=== PATIENT | female | born 1950 | race Caucasian/White ===

== ENCOUNTER 2017-03-10 07:22 | Day surgery (SDC) | payer MEDICARE ==
[2017-03-10] VITALS (7 sets, daily range): BP systolic 161–190; BP diastolic 80–93; PULSE 61–76; RESP 14–20; Ht 165.1 cm; Wt 59.0 kg
[~2017-03-10] VITALS: Ht 165.1 cm; Wt 59.0 kg
[2017-03-10] MEDS ORDERED: POLYMYXIN/BACITRACIN 1L IRRIG IRR ONE (08:00)
[2017-03-10] MEDS ORDERED: CEFAZOLIN 1 GM/50 ML (PMX) 50 ML IVPB ONE ×2 (08:00→10:36)
[2017-03-10] MEDS ORDERED: CLON-379 PO (08:10)
[2017-03-10] MEDS ORDERED: METO-429 PO (08:10)
[2017-03-10] MEDS ORDERED: FERR325C PO (08:11)
[2017-03-10] MEDS ORDERED: SOD CHLORIDE 0.9% 1,000 ML IV SCH (08:16)
[2017-03-10] MEDS ORDERED: METOPROLOL 50 MG TAB PO ONE (08:30)
[2017-03-10] MEDS ORDERED: MIDAZOLAM 1 MG/ML 2 ML INJ ONE (10:36)
[2017-03-10] MEDS ORDERED: LIDOCAINE 2%/EPI 30 ML INJ ONE (10:36)
[2017-03-10] MEDS ORDERED: FENTAnyl 50 MCG/ML VIAL ONE (10:36)
[2017-03-10] MEDS ORDERED: HEPARIN 1000 UNITS/ML 10 ML INJ ONE (10:36)
[2017-03-10] MEDS ORDERED: SOD CHLORIDE 0.9% 500 ML ONE ×2 (10:37→13:20)
--- NOTE | 2017-03-10 11:56 | RADRPT ---
PROCEDURE: FLUOROSCOPIC AND ULTRASONOGRAPHIC-GUIDED PLACEMENT OF LEFT CHEST PORT. CLINICAL INDICATION: History of breast cancer. Venous access for chemotherapy. TECHNIQUE: INTRAPROCEDURE MEDICATIONS: PB antibiotic solution 40 cc applied topically. 1 gram Ancef intravenous ly, intra-op. IV Versed and Fentanyl per protocol. TECHNIQUE: Informed consent was obtained. The procedure, risks, benefits, complications and alternat ang were explained to the patient. Risks including bleeding, infection, and pneumothorax were expl ained. The patient understood and was willing to proceed. A procedural pause was performed. The patient's name, date of , and procedure to be performed w ere verified. The central line was inserted with all elements of maximal sterile barrier technique. All of the fol lowing were used: head covering, facial mask, sterile gown, sterile gloves, a large sterile sheet, h and hygiene, and 2% chlorhexidine for cutaneous antisepsis. The left neck and anterior/superior chest wall were prepped and draped in usual sterile fashion. Limited sonography of the left neck was then performed. Noted is a patent left internal jugular vein . Following the local injection of 1% lidocaine, the left internal jugular vein was punctured under so nographic guidance with a 20-gauge needle through which a 0.018 inch floppy tip guidewire was advanc ed into the superior vena cava with fluoroscopic guidance. The tract was dilated to 5 [place] and t he wire was then replaced with a 0.035 in Glidewire. Serial dilatation was then performed and a 7 F rench peel away sheath was introduced. A site just inferior to the clavicle in the superior anterior left chest wall was localized. One per cent lidocaine was used as local anesthesia. A transverse 3 cm incision was made utilizing a 15 blad e scalpel. Utilizing blunt dissection a subcutaneous pocket was created inferior to the incision. Th e cavity was flushed with approximately 40 cc of PB antibiotic solution. The catheter was tunneled underneath the skin from the newly created pocket to the puncture site in the neck. The central line catheter was pulled through the tract. The catheter was then advanced thr ough the sheath until the tip was positioned in the right atrium. The peel-away sheath was removed. The catheter was flushed and clamped. The catheter was then connected to the 6.6 [place] Ang[employer] power port. The port was then placed into the pocket. Prior to closing the instrument and sponge count was verified and was correct. The subcutaneous tissue was closed with 3-0 Vicryl interrupted suture. The skin at the site of the pock et and in the neck was closed with 4-0 Vicryl suture in a running subcuticular technique. The port w as flushed with 2000 units of heparin in 2 cc utilizing a Kapoor needle. The needle was removed. A dr essing was applied. The patient tolerated procedure well. COMPARISON: None. FINDINGS: Ultrasound images were recorded and stored in the patient's medical record. Final radiographic images demonstrate the tip of the catheter in the upper right atrium. A total of 0.1 minutes of fluoroscopy time was used. The ultrasound images demonstrate the needle entering th e jugular vein. 6 images of the chest were obtained with image intensifier. IMPRESSION: 1. Successful ultrasonographic and fluoroscopic guided placement of left chest port. RPTAT: QQ .Daniel Woodson MD, MD Date Time Electronically viewed and signed by .Daniel Woodson MD, on 03/10/2017 11:56 .R/
--- NOTE | 2017-03-10 12:06 | RADRPT ---
PROCEDURE: Ultrasound guidance for placement of needle in left internal jugular vein. CLINICAL INDICATION: Venous access. TECHNIQUE: Prior to the procedure, informed consent was obtained. Risks including bleeding, infection, and pneu mothorax were explained to the patient. The patient understood and was willing to proceed. A procedu ral pause was performed. The patient's name, date of , and procedure to be performed were verif ied. The central line was inserted with all elements of maximal sterile barrier technique. All of th e following were used: head covering, facial mask, sterile gown, sterile gloves, a large sterile she et, hand hygiene, and 2% chlorhexidine for cutaneous antisepsis. The left neck and anterior/superi or chest wall was prepped and draped in usual sterile fashion. Limited sonography of the left neck was then performed. Noted is a patent left internal jugular vein . Ultrasound images were recorded and stored in the patient's medical record. Following the local injection of Xylocaine, the left internal jugular vein was punctured under sonog raphic guidance with a 20-gauge needle through which a 0.018 inch floppy tip guidewire was advanced into the superior vena cava. The patient tolerated the procedure well. The remainder of the proced ure was performed and dictated under separate cover. COMPARISON: None. FINDINGS: The ultrasound images demonstrate a patent left internal jugular vein. The subsequent images demons trate the needle entering the left internal jugular vein. IMPRESSION: 1. Ultrasound guidance for a needle placement in left internal jugular vein. RPTAT: QQ .Daniel Woodson MD, Date Time Electronically viewed and signed by .Daniel Woodson MD, on 03/10/2017 12:06 .R/
[2017-03-10] MEDS ORDERED: HYDROCODONE/APAP (5/325) TAB PO PRN (12:30)
[2017-03-10] MEDS ORDERED: ONDANSETRON 4 MG INJ ONE (12:59)
[2017-03-10] MEDS ORDERED: ONDANSETRON 4 MG INJ IV STA (13:00)
== END 2017-03-10 14:40 | disposition home or self-care (01) ==
LOC: SDS 07:22
PROVIDERS: ATTEND Internal Medicine Hematology & Oncology
DX: C50.911 Malignant neoplasm of unspecified site of right female breast (principal)
CPT/HCPCS: 36561; 76942; C1788; J0690; J1644; J2250; J2405; J3010; J7040

== ENCOUNTER 2019-02-10 01:36 | Inpatient (IN) | payer MEDICARE, OTHER ==
[~2019-02-10] VITALS: Ht 165.1 cm; Wt 59.0 kg
[~2019-02-10 01:36] MED LIST: ANAS1TAB PO; METO-429 PO; RIBO600T PO
[2019-02-10] MEDS ORDERED: ACETAMINOPHEN 325 MG TAB PO PRN ×2 (06:30→14:00)
[2019-02-10] MEDS ORDERED: ONDANSETRON 4 MG INJ IV PRN ×2 (06:30→14:00)
[2019-02-10] MEDS ORDERED: LEVOFLOXACIN 750MG/D5W (PMX) 150 ML IVPB ONE (06:30)
--- NOTE | 2019-02-10 06:42 | ERD ---
ER Documentation Chief Complaint Chief Complaint bib ra from home for fall, left knee pain s/p fall yesterday, history ofchf HPI This is a 68-year-old female with a past medical history of breast cancer status post mastectomy and chemoradiation, complicated by significant degenerative skin changes and scarring, chronic progressive worsening volume overload and anasarca, frequent falls, who is now presenting to the emergency department with several days of acceleration of her decompensation. The patient has been falling even more frequently, including yesterday. When she fell yesterday, she fell to her knees, and she has been complaining of left knee pain and difficulty with ambulation since then. The patient did not hit her head. She did not lose consciousness. The patient reportedly has been seen by her physicians in an outpatient setting recently and her Lasix dose was increased. However, the patient swelling has not improved. The patient does endorse increased weakness and fatigue as well. The patient endorses feeling generally unwell. She has chronic shortness of breath. She denies chest pain. She denies abdominal pain. She has not had changes to bowel movements or urination. ROS All systems reviewed and are negative except as per history of present illness. Medications Home Meds Reported Medications Ribociclib Succinate (Kisqali) 600 Mg Tablet, 600 MG PO BID, TAB 02/21/18 Anastrozole* (Arimidex*) 1 Mg Tablet, 1 MG PO DAILY, #30 TAB 02/21/18 Metoprolol Tartrate* (Lopressor*) 50 Mg Tab, 50 MG PO BID, #60 TAB 03/10/17 Allergies Allergies: Uncoded Allergies: CHEMOTHERAPY MED (Allergy, Unknown, BREATHING DIFFICULTY, 03/10/17) DONT KNOW THE EXACT NAME OF MEDICINE PMhx/Soc History of Surgery: Yes (BILATERAL MASTECTOMY) Anesthesia Reaction: No Hx Neurological Disorder: No Hx Respiratory Disorders: No Hx Cardiac Disorders: Yes (Hypertension, cardiac disease) Hx Psychiatric Problems: No Hx Miscellaneous Medical Probl: Yes (Breast cancer) Hx Alcohol Use: No Hx Substance Use: No Hx Tobacco Use: No Smoking Status: Never smoker FmHx Family History: No diabetes Physical Exam Vitals Vital Signs Date Temp Pulse Resp B/P (MAP) Pulse Ox O2 O2 Flow FiO2 Time Delivery Rate 02/10/19 97.4 130 18 132/59 97 Nasal 3.0 06:00 (83) Cannula 02/10/19 98.8 81 16 126/65 100 Room Air 03:40 (85) 02/10/19 Nasal 3 02:50 Cannula 02/10/19 98.8 110 16 116/66 100 01:48 (83) Physical Exam Const: No apparent distress, well-developed, well-nourished Head: Normocephalic, Atraumatic Eyes: Normal Conjunctiva. Extraocular movements intact. Pupils equal, round and reactive to light ENT: Normal External Ears, Nose and Mouth. Neck: Full range of motion. No meningismus. Resp: Coarse breath sounds bilaterally. Cardio: Regular rhythm. Tachycardia. No murmurs, rubs or gallops Abd: Soft, non tender, non distended. Normal bowel sounds Skin: No petechiae or rashes Back: No midline tenderness. No CVA tenderness Ext: No cyanosis. Diffuse 2+ pitting extremity edema, anasarca. Neur: Awake and alert. Cranial nerves intact. No facial droop. Moves all extremities spontaneously. Result Diagram: 02/10/1940902/10/19409 Results 24 hrs Laboratory Tests Test 02/10/19 04:10 White Blood Count 6.8 10^3/ul Red Blood Count 3.87 10^6/ul Hemoglobin 10.4 g/dl Hematocrit 35.8 % Mean Corpuscular Volume 92.5 fl Mean Corpuscular Hemoglobin 26.9 pg Mean Corpuscular Hemoglobin Concent 29.1 g/dl Red Cell Distribution Width 16.5 % Platelet Count 262 10^3/UL Mean Platelet Volume 9.7 fl Immature Granulocytes % 0.400 % Neutrophils % % Segmented Neutrophils % (Manual) 26 % Band Neutrophils % (Manual) 49 % Lymphocytes % % Lymphocytes % (Manual) 5 % Monocytes % % Eosinophils % % Basophils % % Basophils % (Manual) 1 % Metamyelocytes % (manual) 15 % Myelocytes % (Manual) 4 % Nucleated Red Blood Cells % 0.0 /100WBC Immature Granulocytes # 0.030 10^3/ul Neutrophils # 10^3/ul Neutrophils # (Manual) 2.0 10^3/ul Band Neutrophils # 3.3 10^3/ul Lymphocytes (Manual) 0.3 10^3/ul Lymphocytes # 10^3/ul Monocytes # 10^3/ul Eosinophils # 10^3/ul Basophils # 10^3/ul Basophils # (Manual) 0.0 10^3/ul Metamyelocytes # 1.0 10^3/ul Myelocytes # 0.2 10^3/ul Nucleated Red Blood Cells # 10^3/ul Platelet Estimate NORMAL Giant Platelets 11 % Platelet Morphology Comment @See below Polychromasia 1+ Poikilocytosis 1+ Anisocytosis 1+ Macrocytosis 1+ Prothrombin Time 12.9 Sec Prothrombin Time Ratio 1.0 INR International Normalized Ratio 0.96 Sodium Level 138 mmol/L Potassium Level 6.0 mmol/L Chloride Level 100 mmol/L Carbon Dioxide Level 30 mmol/L Anion Gap 8 Blood Urea Nitrogen 42 mg/dl Creatinine 1.33 mg/dl Est Glomerular Filtrat Rate mL/min 40 mL/min Glucose Level 88 mg/dl Calcium Level 8.0 mg/dl Troponin I 0.053 ng/ml B-Type Natriuretic Peptide 3840 PG/ML Current Medications Medications Dose Sig/An Start Time Status Last (Trade) Ordered Route PRN Stop Time Admin Dose Reason Admin 150 ml @ ONCE ONCE 02/10/19 UNV Levofloxacin/ 100 mls/hr IVPB 06:30 02/10/19 Dextrose 07:59 Ondansetron 4 mg ER BRIDGE 02/10/19 HCl (Zofran PRN IV 06:30 02/11/19 Inj) NAUSEA/VOMITI 06:29 NG 650 mg ER BRIDGE 02/10/19 Acetaminophen PRN PO 06:30 02/11/19 (Tylenol .MILD PAIN 06:29 Tab) 1-3 OR TEMP Procedures/MDM MDM The patient's presentation warrants further investigation. Previous medical records, if available, were reviewed. LABS The patient's laboratory testing was obtained and reviewed. No emergent treatment was required unless described below. CBC: Significant leukocytosis of unclear etiology. Normocytic anemia, not emergent. Normal platelet count. Chemistry: Hyperkalemia, does not require emergent treatment. Elevated BUN and creatinine of unclear chronicity. No E/o severe acidosis or alkalosis or diabetic ketoacidosis PT/INR: No E/o significant coagulopathy Troponin: No E/o acute ischemia BNP: Elevated EKG EKG read by me: Rate/Rhythm: Sinus tachycardia at 128 bpm Intervals: Normal VA interval and QTc. Wide QRS in the setting of a right bundle branch block. [place]: Left shifted Impression: Nonspecific repolarization changes without evidence of acute ischemia. Sinus tachycardia. IMAGING Imaging and Radiology interpretation reviewed. CXR 1V Interpreted by me Soft Tissue: No acute abnormalities Bones: No acute abnormalities Mediastinum/Cardiac Silhouette: Cardiomegaly. No widened mediastinum. Lungs: Significant right-sided pleural effusion. Cannot rule out an opacity or pneumonia. Pulmonary edema. No pneumothorax. X-ray left knee Interpreted by me No fracture dislocation TREATMENT/DISPOSITION The patient presents after a mechanical fall. She did fall to her knees and c omplained of left knee pain. An x-ray was completed that did not reveal any fracture dislocation on my view. On assessment of the patient, there is significant evidence of failure to thrive and progressive worsening disease. The patient's BNP is elevated, concerning for the possibility of heart failure. The patient does appear to have volume overload and anasarca, and she is failing outpatient therapy. I do feel that the patient requires more aggressive diuresis and would benefit from further management in the hospital. The patient was tachycardic in the emergency department. She was found to have a significant bandemia as well. She is afebrile, and many of her symptoms are chronic in nature. Given the patient's significant bandemia, I did opt to complete a sepsis work-up. The patient does appear to have a significant right- sided pleural effusion, and I cannot exclude pneumonia from the ER. I am concerned that this effusion could be malignant in nature. She may require pleu rocentesis in the hospital. The patient was given a dose of Levaquin in the emergency department. I opted not to pursue the sepsis bolus, given the patient's significant volume overload and anasarca. The patient's blood pressure remained stable throughout my assessment. SEPSIS NOTE SIRS Criteria: Bandemia, tachycardia Infectious source: Pneumonia End organ damage indicated by: None SEPSIS MANAGEMENT Time to recognize sepsis: 0545. Time to recognize severe sepsis: I do not suspect severe sepsis Time to recognize septic shock: I do not suspect septic shock 3 HOUR BUNDLE Blood cultures x 2 before abx: Yes 30 ml/kg NS bolus not completed secondary to significant volume overload and the patient Initial lactate pending Repeat lactate pending SEPTIC SHOCK ASSESSMENT: Lactic acid is pending NO hypotension (SBP < 90 or 40 mmHg drop, MAP < 65) CRITICAL CARE Critical care time 35 minutes Emergent fluid management while maintaining close respiratory support. Provision of immediate and broad-spectrum antibiotic therapy. Simultaneous assessment for possible sources in order to direct targeted therapy. Consideration for invasive and chemical support to prevent cardiopulmonary collapse. Critical care time is independent of procedures performed. ADMISSION The patient will be admitted to panel in accordance with the patient's insurance. The patient was accepted by Dr. Cruz at 6:15 AM on February 10, 2019. Disclaimer: Inadvertent spelling and grammatical errors are likely due to EHR/dictation software use and do not reflect on the overall quality of patient care. Note that the electronic time recorded on this note does not necessarily reflect the actual time of the patient encounter. Departure Diagnosis: Primary Impression: Sepsis Sepsis type: sepsis due to unspecified organism Qualified Codes: A41.9 - Sepsis, unspecified organism Additional Impressions: Pneumonia Pneumonia type: due to unspecified organism Laterality: right Lung location: lower lobe of lung Qualified Codes: J18.1 - Lobar pneumonia, unspecified organism Pleural effusion Tachycardia Bandemia Failure to thrive Failure to thrive age range: in adult Qualified Codes: R62.7 - Adult failure to thrive History of breast cancer CHF (congestive heart failure) Heart failure type: unspecified Heart failure chronicity: chronic Qualified Codes: I50.9 - Heart failure, unspecified Elevated brain natriuretic peptide (BNP) level Anasarca Volume overload Hypervolemia type: unspecified Qualified Codes: E87.70 - Fluid overload, unspecified Condition: Serious LILLIAN BURGER MD Feb 10, 2019 06:41
[2019-02-10] MEDS: NA POLYST SULFON 15 GM/60 ML BTL PO ONE ×2 (09:41→10:12)
[2019-02-10] MEDS ORDERED: CLON0.2T5 PO (11:26)
[2019-02-10] MEDS ORDERED: METO-429 PO (11:27)
[2019-02-10] MEDS ORDERED: POTA20TA15 PO (11:27)
[2019-02-10] MEDS ORDERED: PANT40TA3 PO (11:27)
[2019-02-10] MEDS ORDERED: FURO40TA4 PO (11:27)
[2019-02-10] MEDS ORDERED: ALBU18HF INHALATION (11:28)
[2019-02-10] MEDS ORDERED: PALB125C PO (11:29)
[2019-02-10 13:35] VITALS: Ht 165.1 cm; Wt 59.0 kg
[2019-02-10] MEDS ORDERED: SOD CHLORIDE 0.9% 1,000 ML IV SCH (13:42)
[2019-02-10] MEDS ORDERED: NACL 0.9% 3 ML SYG IV SCH (14:00)
[2019-02-10] MEDS ORDERED: HYDROCODONE/APAP (5/325) TAB PO PRN (14:00)
[2019-02-10] MEDS ORDERED: morphine 2 MG INJ IV PRN (14:00)
[2019-02-10 14:45] VITALS: BP 95/50; PULSE 120; RESP 22
--- NOTE | 2019-02-10 14:45 | HP ---
Date/Time of Note Date/Time of Note DATE: 02/10/19 TIME: 14:35 Assessment/Plan VTE Prophylaxis SCD applied (from Nsg): Yes Pharmacological prophylaxis: NA/contraindicated Pharm contraindication: renal impairment Lines/Catheters IV Catheter Type (from Nrsg): Saline Lock Assessment/Plan Hospital Course 1. Acute encephalopathy like secondary to severe dehydration on progressive metastatic breast cancer Patient may have a reversible component to her encephalopathy secondary to dehydration, trial of fluids Family aware that this may be simply the progression of her underlying terminal metastatic breast cancer Empiric Rocephin for possible UTI Follow-up on UA 2. Acute kidney injury secondary to dehydration IV fluids Nephrology consultation obtained 3. Metastatic breast cancer status post bilateral mastectomy and chemoradiation Patient's chemotherapy is reportedly on hold by outpatient oncologist likely secondary to decreased functional status Patient with poor prognosis, family has decided on DNR status 4. Hyperkalemia secondary to acute kidney injury IV fluids Nephrology consultation obtained 5. Normocytic anemia secondary to chronic disease Monitor 6. History of hypertension Hold home meds as blood pressure is currently low 7. Pulmonary edema secondary malignant effusion Chest x-ray shows pulmonary congestion with moderate to large right and small left pleural effusions, there is possible consolidation within the right lung base, patient also with asymmetric 4.4 cm right apical density and 0.5 similar left apical nodule Pulmonology consultation obtained, defer need for thoracentesis to pulmonary Prophylaxis: SCDs Result Diagram: 02/10/190 02/10/19 0410 Results 24hrs Laboratory Tests Test 02/10/19 04:10 02/10/19 06:49 02/10/19 08:25 02/10/19 10:24 White Blood Count 6.8 Red Blood Count 3.87 L Hemoglobin 10.4 L Hematocrit 35.8 L Mean Corpuscular Volume 92.5 Mean Corpuscular 26.9 L Hemoglobin Mean Corpuscular 29.1 L Hemoglobin Concent Red Cell Distribution 16.5 H Width Platelet Count 262 Mean Platelet Volume 9.7 Immature Granulocytes % 0.400 Neutrophils % Segmented Neutrophils 26 L % (Manual) Band Neutrophils % 49 H (Manual) Lymphocytes % Lymphocytes % (Manual) 5 L Monocytes % Eosinophils % Basophils % Basophils % (Manual) 1 Metamyelocytes % 15 H (manual) Myelocytes % (Manual) 4 H Nucleated Red Blood 0.0 Cells % Immature Granulocytes # 0.030 Neutrophils # Neutrophils # (Manual) 2.0 Band Neutrophils # 3.3 H Lymphocytes (Manual) 0.3 L Lymphocytes # Monocytes # Eosinophils # Basophils # Basophils # (Manual) 0.0 Metamyelocytes # 1.0 H Myelocytes # 0.2 H Nucleated Red Blood Cells # Platelet Estimate NORMAL Giant Platelets 11 H Platelet Morphology @See below Comment Polychromasia 1+ Poikilocytosis 1+ Anisocytosis 1+ Macrocytosis 1+ Prothrombin Time 12.9 Prothrombin Time Ratio 1.0 INR International 0.96 Normalized Ratio Sodium Level 138 Potassium Level 6.0 H Chloride Level 100 Carbon Dioxide Level 30 Anion Gap 8 Blood Urea Nitrogen 42 H Creatinine 1.33 H Est Glomerular Filtrat 40 L Rate mL/min Glucose Level 88 Calcium Level 8.0 L Troponin I 0.053 B-Type Natriuretic 3840 H Peptide POC Venous Lactate 1.5 Lactic Acid Level 1.5 1.5 HPI/ROS Admit Date/Time Admit Date/Time Feb 10, 2019 at 06:23 Hx of Present Illness Patient is a 68-year-old female with a history of hypertension and metastatic breast cancer diagnosed in 2016 status post bilateral mastectomy and chemoradiation. Patient does follow-up with oncologist and chemotherapy is currently being held likely secondary to decreased functional status. Patient presents with 2 days of worsening weakness and confusion, in the ER labs are consistent with dehydration chest x-ray shows pleural effusions. Patient reportedly has diffuse metastasis involving the multiple skeletal sites, patient also had a mass in the uterus status post hysterectomy in the past. Patient is unable to provide history and history is obtained from family who is bedside. CODE STATUS was discussed and family is requesting DO NOT RESUSCITATE. ROS Subjective hx not possible: pt non-verbal PMH/Family/Social Past Medical History As per HPI Medications Current Medications Sodium Chloride 1,000 ml @ 125 mls/hr Q8H IV ; Start 02/10/19 at 13:42 IV Flush (NS 3 ml) 3 ml PER PROTOCOL IV ; Start 02/10/19 at 14:00 Ondansetron HCl (Zofran Inj) 4 mg Q6H PRN IV NAUSEA/VOMITING; Start 02/10/19 at 14:00 Acetaminophen (Tylenol Tab) 650 mg Q6H PRN PO .PAIN 1-3 OR TEMP; Start 02/10/19 at 14:00 Acetaminophen/ Hydrocodone Bitart ([place] (5/325)) 1 tab Q6H PRN PO .MOD PAIN 4- 6; Start 02/10/19 at 14:00 Morphine Sulfate (morphine) 2 mg Q4H PRN IV .SEVERE PAIN 7-10; Start 02/10/19 at 14:00 Uncoded Allergies: CHEMOTHERAPY MED (Allergy, Unknown, BREATHING DIFFICULTY, 03/10/17) DONT KNOW THE EXACT NAME OF MEDICINE Past Surgical History Bilateral mastectomy, hysterectomy Family History Significant Family History: no pertinent family hx Social History Alcohol Use: none Smoking Status: Never smoker Drug Use: none Exam/Review of Systems Vital Signs Vitals Vital Signs Date Temp Pulse Resp B/P (MAP) Pulse Ox O2 O2 Flow FiO2 Time Delivery Rate 02/10/19 96.7 89 15 99/44 (62) 100 12:26 02/10/19 Nasal 3.0 11:13 Cannula Exam Constitutional: non-verbal Respiratory: clear to auscultation Cardiovascular: regular rate and rhythm Gastrointestinal: soft; No distended Musculoskeletal: nl extremities to inspection SAHRA ROMERO Feb 10, 2019 14:45
[2019-02-10] MEDS ORDERED: CEFTRIAXONE 1 GM/50 ML (PMX) 50 ML IVPB SCH (15:00)
--- NOTE | 2019-02-10 18:20 | CONS ---
DATE OF ADMISSION: 02/10/2019 DATE OF CONSULTATION: 02/10/2019 TYPE OF CONSULTATION: Nephrology. REASON FOR CONSULTATION: Acute kidney injury, hyperkalemia. PHYSICIAN REQUESTING CONSULTATION: Dr. Garcia. HISTORY OF PRESENT ILLNESS: This is a 68-year-old female with a past medical history of hypertension , history of metastatic breast cancer diagnosed 2016, status post bilateral mastectomy, chemoradiatio n, history of lymphedema, who presents to [facility] with worsening weakness, confu elian. The patient, upon arrival to emergency room, had a chest x-ray which showed bilateral pleural effusion. The patient, in the emergency room, also noted to be volume overloaded. In terms of patient's renal history, on admission, the patient had a BUN of 42, creatinine 1.33, and a potassium of 6.0. The patient is taking diuretic therapy and potassium supplements at home. The p atient was started on IV fluids and admitted to med/surg telemetry. PAST MEDICAL HISTORY: History of metastatic breast cancer with mets to bones, history of hypertensio n. PAST SURGICAL HISTORY: Status post bilateral mastectomy. FAMILY HISTORY: No significant disease. SOCIAL HISTORY: Does not drink, smoke, do drugs. MEDICATIONS: The patient's medications have been reviewed. REVIEW OF SYSTEMS: A 14-point review of systems was conducted. Pertinent positives stated in the HP I, otherwise negative. PHYSICAL EXAMINATION: VITAL SIGNS: Blood pressure is 95/50, respirations 22, pulse 120, temperature 98.6. HEENT: Head is normocephalic. NECK: Supple. HEART: Tachycardic. LUNGS: Show diminished breath sounds at the base. ABDOMEN: Soft, obese, nontender to palpation. EXTREMITIES: Negative for clubbing, cyanosis. Positive edema, diffuse anasarca. DERMATOLOGIC: No rashes. MUSCULOSKELETAL: No joint effusion. NEUROLOGIC: Limited exam as the patient is obtunded. The patient's medications have been reviewed. LABORATORY DATA: Has been reviewed. IMAGING STUDIES: Have been reviewed. ASSESSMENT AND PLAN: This is a 68-year-old female who presents with: 1. Nonoliguric acute kidney injury with unknown baseline creatinine. Etiology of acute kidney injur y is likely secondary to hemodynamics, diuretic therapy. Other possibilities such as tubular injury, interstitial nephritis are a consideration. Plan at this point is check a urinalysis with microanal ysis, check urine electrolytes, check a renal ultrasound to rule out obstructive uropathy in the sett ing of metastatic breast cancer. We will continue gentle intravenous hydration. We will continue prather pportive care, renally dose all medications, avoid nephrotoxins. 2. Hyperkalemia. This is likely secondary to acute injury in conjunction with potassium supplementa tion. The patient is status post Kayexalate. Continue to monitor. The patient will be placed on a low-potassium diet. 3. Anemia. Monitor hemoglobin and hematocrit levels. 4. Mineral bone disorder. Monitor calcium and phosphorus levels. 5. Acute encephalopathy, likely secondary to toxic-metabolic, volume depletion, acute kidney injury. The patient is currently on intravenous antibiotics for possible urinary tract infection and intrav enous fluids. Monitor closely. 6. Urinary tract infection. Continue current medical management. 7. Metastatic breast cancer. The patient is status post bilateral mastectomy, status post chemoradi ation. Continue to monitor. 9. History of hypertension. 10. Pulmonary edema, pleural effusions. Etiology likely secondary malignant in etiology. Will cont inue to monitor. Consider paracentesis. Thank you, Dr. Garcia, for this interesting consult. It will be a pleasure to follow patient with y ou throughout the hospital course. Dictated By: CAMRON SULLIVAN DO NR/NTS Conf#: [id number] DID#: [id number] CC: AIXA MENA MD; SAHRA GARCIA MD;*End*
[2019-02-10 21:18] VITALS: BP 85/44; PULSE 120; RESP 17; RESP 20
== END 2019-02-10 22:20 | disposition expired | DRG 682 ==
LOC: E/R 01:36 → 2NE 06:23 → EDBEDREQ 11:09 → EDBEDREQSVC 11:09
PROVIDERS: ADMIT Internal Medicine; ATTEND Internal Medicine
DX: N17.9 Acute kidney failure, unspecified (principal); J18.9 Pneumonia, unspecified organism; G92 Toxic encephalopathy; N39.0 Urinary tract infection, site not specified; C79.51 Secondary malignant neoplasm of bone; J91.0 Malignant pleural effusion; M25.561 Pain in right knee; Z91.81 History of falling; R60.1 Generalized edema; I50.9 Heart failure, unspecified; E87.5 Hyperkalemia; E86.0 Dehydration; D64.9 Anemia, unspecified; C50.919 Malignant neoplasm of unspecified site of unspecified female breast; I10 Essential (primary) hypertension; Z66 Do not resuscitate
CPT/HCPCS: 36415; 71045; 73562; 80048; 81001; 81003; 82043; 83605; 83880; 84155; 84300; 84484; 85025; 85610; 87086; 93005; A4310; J0696; J1956; J7030